=== PATIENT | male | born 1985 | race Asian ===

== ENCOUNTER 2020-06-15 12:25 | Emergency (ER) | payer OTHER ==
[~2020-06-15] VITALS: Ht 172.7 cm; Wt 74.8 kg
--- NOTE | 2020-06-15 12:30 | NUR ---
Patient to ER bed 05 to gown for evaluation. Side rails up.
--- NOTE | 2020-06-15 12:40 | NUR ---
Pt brought by self, A&Ox4, pt presents to ER with R lower abdominal pain since last night, also c/o nausea and vomiting , pt states he had history of twisting of intestines long time ago, skin pink and warm, cap refill <3, VSS , respirations even and unlabored,pt afebrile, will cont to monitor.
[2020-06-15 12:42] VITALS: BP_SYST 158
[2020-06-15] MEDS ORDERED: NACL 0.9% 1,000 ML IV ONE (12:45)
[2020-06-15] MEDS ORDERED: ONDANSETRON HCL 4 MG/2 ML VIAL IVP ONE (12:45)
[2020-06-15] MEDS ORDERED: KETOROLAC TROMETHAMINE 30 MG VIAL IVP ONE (12:45)
--- NOTE | 2020-06-15 13:02 | NUR ---
Dr Sorensen evaluating patient at bedside
[2020-06-15 13:09] LABS: BASOPHILS % (AUTO) 0.2 % (0.0-2.0); HEMOGLOBIN 14.8 g/dL (14.0-18.0); LYMPHOCYTES # (AUTO) 1.5 K/uL (1.0-5.5); LYMPHOCYTES % (AUTO) 10.6 % (20.5-51.5); MEAN CORPUSCULAR HEMOGLOBIN 31 pg (27-31); MEAN CORPUSCULAR HGB CONC 34 % (32-36); MEAN CORPUSCULAR VOLUME 90 fL (79.0-98.0); MONOCYTES # (AUTO) 0.6 K/uL (0.0-1.0); MONOCYTES % (AUTO) 4.2 % (1.7-9.3); NEUTROPHILS # (AUTO) 12.3 K/uL (1.8-7.7); PLATELET COUNT (AUTO) 312 K/uL (130-430); RED BLOOD CELL COUNT(AUTO) 4.76 MIL/uL (4.2-6.2); RED CELL DISTRIBUTION WIDTH 13.1 % (9.0-15.0); WHITE BLOOD COUNT (AUTO) 14.5 K/uL (4.8-10.8)
[2020-06-15 13:25] LABS: ALBUMIN 4.2 g/dL (3.4-4.8); CREATININE 1.35 mg/dL (0.55-1.30); POTASSIUM 4.5 mmol/L (3.5-5.1); TOTAL BILIRUBIN 0.8 mg/dL (0.0-1.0)
--- NOTE | 2020-06-15 13:46 | NUR ---
Pt awake alert and oriented. VSS
[2020-06-15 14:12] VITALS: BP_SYST 158
--- NOTE | 2020-06-15 14:12 | NUR ---
Patient given written and verbal discharge instructions and verbalizes understanding. ER MD discussed with patient the results and treatment provided. Patient in stable condition. ID arm band removed. IV catheter removed intact and dressing applied, no active bleeding. Rx of norco, motrin, zofran, flomax given. Patient educated on pain management and to follow up with PMD. Pain Scale 3/10. Opportunity for questions provided and answered. Medication side effect fact sheet provided.
== END 2020-06-15 14:12 | disposition home or self-care (01) ==
LOC: SED 12:25
DX: N20.0 Calculus of kidney (principal); R10.31 Right lower quadrant pain
CPT/HCPCS: 36415; 74176; 80053; 81002; 83690; 85025; 96361; 96374; 96375; 99284; J1885; J2405; J7030

== ENCOUNTER 2021-05-05 15:18 | Emergency (ER) | payer MEDICAID, SELFPAY ==
[~2021-05-05] VITALS: Ht 172.7 cm; Wt 75.3 kg
[2021-05-05 15:20] VITALS: BP_SYST 121
[2021-05-05] MEDS ORDERED: KETOROLAC TROMETHAMINE 30 MG VIAL IVP ONE (16:00)
[2021-05-05] MEDS ORDERED: KETOROLAC TROMETHAMINE 30 MG VIAL IM ONE (16:30)
[2021-05-05 16:38] LABS: BASOPHILS % (AUTO) 0.3 % (0.0-2.0); EOSINOPHILS % (AUTO) 0.2 % (0.0-4.0); HEMATOCRIT 42.9 % (36-54); HEMOGLOBIN 14.6 g/dL (14.0-18.0); LYMPHOCYTES # (AUTO) 2.3 K/uL (1.0-5.5); LYMPHOCYTES % (AUTO) 22.5 % (20.5-51.5); MEAN CORPUSCULAR HEMOGLOBIN 31 pg (27-31); MEAN CORPUSCULAR HGB CONC 34 % (32-36); MEAN CORPUSCULAR VOLUME 91 fL (79.0-98.0); MONOCYTES # (AUTO) 0.6 K/uL (0.0-1.0); MONOCYTES % (AUTO) 6.3 % (1.7-9.3); NEUTROPHILS # (AUTO) 7.3 K/uL (1.8-7.7); NEUTROPHILS % (AUTO) 70.7 % (40.0-70.0); PLATELET COUNT (AUTO) 296 K/uL (130-430); RED BLOOD CELL COUNT(AUTO) 4.71 MIL/uL (4.2-6.2); RED CELL DISTRIBUTION WIDTH 12.8 % (9.0-15.0); WHITE BLOOD COUNT (AUTO) 10.3 K/uL (4.8-10.8)
[2021-05-05 16:40] LABS: CALCIUM 9.3 mg/dL (8.4-11.0); CREATININE 1.22 mg/dL (0.55-1.30)
[2021-05-05 16:44] LABS: INR 1.1 (0.80-1.20); PROTHROMBIN TIME 11.6 SECS (9.5-12.5)
[2021-05-05 16:46] LABS: TOTAL BILIRUBIN 0.3 mg/dL (0.0-1.0)
[2021-05-05 17:57] LABS: BILIRUBIN,URINE NEGATIVE (NEGATIVE); BLOOD, URINE 3+ (NEGATIVE); CLARITY/URINE CLOUDY (CLEAR); COLOR,URINE RED (YELLOW); GLUCOSE,URINE 1+ (NEGATIVE); KETONES,URINE NEGATIVE (NEGATIVE); LEUKOCYTE ESTERASE ,URINE TRACE (NEGATIVE); NITRITE, URINE NEGATIVE (NEGATIVE); PH,URINE 6.5 (5.0-8.0); PROTEIN URINE 2+ (NEGATIVE); UROBILINOGEN,URINE 0.2 (0.2-1.0)
[2021-05-05] MEDS ORDERED: cefTRIAXone 1 GM in D5W 50 ML IV ONE (18:15)
[2021-05-05] MEDS ORDERED: ONDANSETRON HCL 4 MG/2 ML VIAL IVP PRN (18:15)
[2021-05-05] MEDS ORDERED: NACL 0.9% 1,000 ML IV SCH (18:15)
[2021-05-05] MEDS ORDERED: HYDROmorphone 1 MG/ML INJ. CARTRIDGE IVP PRN (18:15)
[2021-05-05 18:47] LABS: RBC,URINE >100 /HPF (0-3)
[2021-05-05 18:57] LABS: BACTERIA,URINE FEW /HPF (None Seen); MUCUS,URINE None Seen /LPF (None Seen)
[2021-05-05] MEDS ORDERED: cefTRIAXone 1 GM VIAL ONE (18:59)
[2021-05-05 20:40] VITALS: BP_SYST 118
[2021-05-06] MEDS ORDERED: HYDR-3917 PO (16:37)
== END 2021-05-05 20:40 | disposition left against medical advice (07) ==
LOC: SED 15:18 → SMU 18:15 → UNDOADMIN 18:15 → UNDODISIN 20:40 → SMU 20:40
DX: N20.0 Calculus of kidney (principal); Z20.822 Contact with and (suspected) exposure to COVID-19
CPT/HCPCS: 36415; 74176; 76376; 80053; 81000; 83690; 85025; 85610; 85730; 87040; 87086; 87426; 96365; 96372; 99285; J0696; J1885

== ENCOUNTER 2021-05-06 15:26 | Emergency (ER) | payer MEDICAID, SELFPAY ==
[~2021-05-06] VITALS: Ht 172.7 cm; Wt 75.3 kg
[2021-05-06 15:45] VITALS: BP_SYST 121
--- NOTE | 2021-05-06 15:55 | NUR ---
Pt to [facility] for evaluation.
--- NOTE | 2021-05-06 16:00 | NUR ---
pt here for recheck on kidney stone, seen last night and ama. pt denies any pain or discomfort at this time.
--- NOTE | 2021-05-06 16:30 | NUR ---
dr langford speaking to pt
[2021-05-06] MEDS ORDERED: HYDR-3917 PO (16:37)
[2021-05-06 16:39] VITALS: BP_SYST 116
--- NOTE | 2021-05-06 16:41 | NUR ---
pt verbalizes dc instructions. no acute distress noted. stable on dc
== END 2021-05-06 16:41 | disposition home or self-care (01) ==
LOC: SED 15:26
DX: N23 Unspecified renal colic (principal); Z79.899 Other long term (current) drug therapy
CPT/HCPCS: 99281

== ENCOUNTER 2021-06-07 16:34 | Emergency (ER) | payer MEDICAID ==
[~2021-06-07] VITALS: Ht 172.7 cm; Wt 74.8 kg
[~2021-06-07 16:34] MED LIST: HYDR-3917 PO
[2021-06-07 16:39] VITALS: BP_SYST 132
[2021-06-07] MEDS ORDERED: KETOROLAC TROMETHAMINE 30 MG VIAL IVP ONE (17:00)
[2021-06-07] MEDS ORDERED: ONDANSETRON HCL 4 MG/2 ML VIAL IVP ONE (17:00)
[2021-06-07] MEDS ORDERED: NACL 0.9% 1,000 ML IV ONE (17:00)
[2021-06-07 17:14] LABS: BASOPHILS % (AUTO) 0.3 % (0.0-2.0); EOSINOPHILS # (AUTO) 0.1 K/uL (0.0-0.4); EOSINOPHILS % (AUTO) 0.6 % (0.0-4.0); HEMATOCRIT 41.4 % (36-54); HEMOGLOBIN 14.3 g/dL (14.0-18.0); LYMPHOCYTES # (AUTO) 1.9 K/uL (1.0-5.5); LYMPHOCYTES % (AUTO) 16.9 % (20.5-51.5); MEAN CORPUSCULAR HEMOGLOBIN 31 pg (27-31); MEAN CORPUSCULAR HGB CONC 35 % (32-36); MEAN CORPUSCULAR VOLUME 90 fL (79.0-98.0); MONOCYTES # (AUTO) 0.5 K/uL (0.0-1.0); MONOCYTES % (AUTO) 4.5 % (1.7-9.3); NEUTROPHILS # (AUTO) 8.9 K/uL (1.8-7.7); NEUTROPHILS % (AUTO) 77.7 % (40.0-70.0); PLATELET COUNT (AUTO) 255 K/uL (130-430); RED BLOOD CELL COUNT(AUTO) 4.59 MIL/uL (4.2-6.2); RED CELL DISTRIBUTION WIDTH 12.6 % (9.0-15.0); WHITE BLOOD COUNT (AUTO) 11.5 K/uL (4.8-10.8)
[2021-06-07 17:24] LABS: CREATININE 1.2 mg/dL (0.55-1.30); POTASSIUM 3.4 mmol/L (3.5-5.1)
[2021-06-07 17:30] LABS: ALBUMIN 4.1 g/dL (3.4-4.8); TOTAL BILIRUBIN 0.3 mg/dL (0.0-1.0)
[2021-06-07 18:56] LABS: BILIRUBIN,URINE NEGATIVE (NEGATIVE); BLOOD, URINE 3+ (NEGATIVE); CLARITY/URINE CLOUDY (CLEAR); COLOR,URINE RED (YELLOW); GLUCOSE,URINE 1+ (NEGATIVE); KETONES,URINE NEGATIVE (NEGATIVE); LEUKOCYTE ESTERASE ,URINE NEGATIVE (NEGATIVE); NITRITE, URINE NEGATIVE (NEGATIVE); PROTEIN URINE NEGATIVE (NEGATIVE); UROBILINOGEN,URINE 0.2 (0.2-1.0)
[2021-06-07 19:51] LABS: BACTERIA,URINE FEW /HPF (None Seen); RBC,URINE >100 /HPF (0-3)
[2021-06-07 19:53] LABS: MUCUS,URINE None Seen /LPF (None Seen)
[2021-06-07] MEDS ORDERED: ONDA-8 TL (20:08)
[2021-06-07] MEDS ORDERED: IBUP-1969 PO (20:08)
[2021-06-07 20:40] VITALS: BP_SYST 136
== END 2021-06-07 20:40 | disposition home or self-care (01) ==
LOC: SED 16:34
DX: N23 Unspecified renal colic (principal); R81 Glycosuria; E78.00 Pure hypercholesterolemia, unspecified; Z79.899 Other long term (current) drug therapy
CPT/HCPCS: 36415; 76705; 76770; 80053; 81000; 85025; 96361; 96374; 96375; 99284; J1885; J2405; J7030